=== PATIENT | male | born 1980 | race Caucasian/White ===

== ENCOUNTER 2017-06-07 06:47 | Emergency (ER) | payer OTHER ==
[~2017-06-07] VITALS: Ht 180.3 cm; Wt 152.6 kg
[~2017-06-07 06:47] MED LIST: ASPIRIN81 M1 PO; MOTRIN400 MG PO; PEPTO BISMOL262 MG PO
[2017-06-07 07:16] LABS: HEMATOCRIT 47.2 % (38.0-50.0); MCH 27.5 PG (29.0-34.0); MCHC 32.8 G/DL (30.0-36.0); MCV 83.8 FL (86-99); MEAN PLAT.VOLUME 10.1 uM^3 (9.0-12.4); PLATELET COUNT 251 K/uL (156-360); RBC DIS.WIDTH-CV 13.5 % (11.8-14.6); RBC DIS.WIDTH-SD 41.3 % (39-53); RED BLOOD COUNT 5.63 M/uL (4.00-5.50); WHITE BLOOD COUNT 10.6 K/uL (4.1-10.2)
[2017-06-07 07:24] LABS: CHLORIDE 103 mEq/L (99-109); POTASSIUM 3.9 mEq/L (3.7-5.4); SODIUM 137 mEq/L (136-147)
[2017-06-07 07:25] LABS: GLUCOSE 209 mg/dL (70-99)
[2017-06-07 07:27] LABS: ANION GAP 10 MEQ/L (2-14)
[2017-06-07 07:29] LABS: GFR ESTIMATE (CALCULATED) > 59 mL/min/
[2017-06-07 07:30] LABS: UREA NITROGEN (BUN) 14 mg/dL (9-23)
[2017-06-07 07:36] LABS: TROP-I INTERPRETATION NEGATIVE; TROPONIN-I < 0.01 ng/mL (0.0-0.30)
[2017-06-07 11:20] LABS: TROP-I INTERPRETATION NEGATIVE; TROPONIN-I < 0.01 ng/mL (0.0-0.30)
[2017-06-07 12:35] VITALS: BP 130/76
== END 2017-06-07 12:35 | disposition home or self-care (01) ==
LOC: EME 06:47
PROVIDERS: Emergency Medicine
DX: J02.0 Streptococcal pharyngitis (principal); R05 Cough; R06.02 Shortness of breath; M79.7 Fibromyalgia; J44.9 Chronic obstructive pulmonary disease, unspecified; E11.9 Type 2 diabetes mellitus without complications; K21.9 Gastro-esophageal reflux disease without esophagitis; F90.9 Attention-deficit hyperactivity disorder, unspecified type; F41.9 Anxiety disorder, unspecified; F32.9 Major depressive disorder, single episode, unspecified; L40.50 Arthropathic psoriasis, unspecified; Z79.84 Long term (current) use of oral hypoglycemic drugs; Z79.82 Long term (current) use of aspirin
CPT/HCPCS: 71020; 80048; 84484; 85027; 93005; 94640; 99281; 99284; J1100; J7030